=== PATIENT | female | born 1990 | race African-American/Black ===

== ENCOUNTER 2020-09-17 21:11 | Emergency (ER) | payer OTHER ==
[2020-09-17] MEDS ORDERED: Acetaminophen 500 MG TAB ONE (22:56)
[2020-09-17] MEDS ORDERED: Mag-Al Plus 1200 MG/1200 MG/120 MG/30 ML UDCUP ONE (22:56)
== END 2020-09-17 23:54 | disposition home or self-care (01) ==
LOC: CSHERS 21:11
DX: O99.612 Diseases of the digestive system complicating pregnancy, second trimester (principal); K21.9 Gastro-esophageal reflux disease without esophagitis; O99.332 Smoking (tobacco) complicating pregnancy, second trimester; F17.210 Nicotine dependence, cigarettes, uncomplicated
CPT/HCPCS: 99283

== ENCOUNTER 2020-12-05 17:30 | Day surgery (SDC) | payer OTHER ==
[2020-12-05] MEDS ORDERED: hydrALAZINE 20 MG/ML VIAL SLOW IVP PRN (18:00)
== END 2020-12-05 19:15 | disposition home or self-care (01) ==
LOC: CSHLD/OP 17:30
PROVIDERS: ATTEND Obstetrics & Gynecology
DX: O36.8120 Decreased fetal movements, second trimester, not applicable or unspecified (principal); O99.212 Obesity complicating pregnancy, second trimester; E66.9 Obesity, unspecified; O34.219 Maternal care for unspecified type scar from previous cesarean delivery; Z3A.25 25 weeks gestation of pregnancy
CPT/HCPCS: 99282

== ENCOUNTER 2021-03-02 19:17 | Day surgery (SDC) | payer OTHER ==
[2021-03-02 21:21] VITALS: BMI 42.5
[2021-03-02] MEDS ORDERED: hydrALAZINE 20 MG/ML VIAL SLOW IVP PRN (21:53)
[2021-03-02] MEDS ORDERED: Benzocaine-Menthol 82.5 ML CAN TOP PRN (21:54)
== END 2021-03-02 22:45 | disposition home or self-care (01) ==
LOC: CSHLD/OP 19:17
PROVIDERS: ATTEND Obstetrics & Gynecology
DX: O99.891 Other specified diseases and conditions complicating pregnancy (principal); N89.8 Other specified noninflammatory disorders of vagina; R20.0 Anesthesia of skin; R30.0 Dysuria; Z3A.38 38 weeks gestation of pregnancy; Z79.82 Long term (current) use of aspirin
CPT/HCPCS: 87480; 87510; 87660; 99283

== ENCOUNTER 2021-11-22 00:35 | Emergency (ER) | payer OTHER ==
[2021-11-22 01:19] LABS: Bilirubin Neg (Negative); Blood, Urine 250 (Negative); Clarity Cloudy (Clear); Glucose, Urine (Dipstick) Normal (Negative); Ketone, Urine Negative (Negative); Leukocyte 25 (Negative); Nitrite Negative (Negative); Pregnancy Test - Urine (BHCG) Negative (Negative); Pregu Control Background? CLEAR/WHITE (CLR/WHITE); Pregu Control Bar Appear? YES (CONTROL BAR); Protein, Urine (Dipstick) 15 mg/dl (Neg-Trace); Specific Gravity 1.025 (1.002-1.036); Specific Gravity, Urine 1.025 (1.002-1.036)
[2021-11-22 01:28] LABS: Bacteria/HPF 2+ HPF (None Seen); Mucous/LPF 2+ LPF (<2+)
[2021-11-22 01:29] LABS: White Blood Cell Cast 0-3 LPF (None Seen)
== END 2021-11-22 02:13 | disposition home or self-care (01) ==
LOC: CSHERS 00:35
DX: N39.0 Urinary tract infection, site not specified (principal)
CPT/HCPCS: 81003; 81015; 81025; 87086; 99284

== ENCOUNTER 2023-03-30 19:10 | Emergency (ER) | payer OTHER | END 2023-03-30 19:40 | disposition home or self-care (01) | LOC: CSHERS 19:10 | DX: S93.601A Unspecified sprain of right foot, initial encounter (principal); M72.2 Plantar fascial fibromatosis; F17.290 Nicotine dependence, other tobacco product, uncomplicated; X58.XXXA Exposure to other specified factors, initial encounter | CPT/HCPCS: 99283 ==

== ENCOUNTER 2023-12-09 21:49 | Emergency (ER) | payer OTHER | END 2023-12-10 00:17 | disposition home or self-care (01) | LOC: CSHERS 21:49 | DX: N76.0 Acute vaginitis (principal); B97.89 Other viral agents as the cause of diseases classified elsewhere; F17.290 Nicotine dependence, other tobacco product, uncomplicated | CPT/HCPCS: 99283 ==